=== PATIENT | male | born 1940 | race Caucasian/White ===

== ENCOUNTER → 2017-11-15 | Outpatient (CLI) | payer MEDICARE, OTHER ==
[~2017-11-15] MED LIST: ALLO300T PO; ASPI-515 PO; GABA300C10 PO; LISI-170 PO; MELO15TA24 PO; METO25TA35 PO; OXYC5CAP2 PO; REGADENOSON 0.4 MG/5 ML SYRINGE ONE; TAMS-11 PO; TRAM50TA2 PO
== END | disposition home or self-care (01) ==
LOC: CFH 08:13
PROVIDERS: ATTEND Internal Medicine Cardiovascular Disease
DX: R06.02 Shortness of breath (principal)
CPT/HCPCS: 78452; 93017; A9502; J2785

== ENCOUNTER → 2018-08-12 | Outpatient (CLI) | payer MEDICARE, OTHER ==
[~2018-08-12] MED LIST changes: -REGADENOSON 0.4 MG/5 ML SYRINGE ONE
[2018-08-12 14:06] LABS: BASOPHILS # (AUTO) 0.05 x10^3/uL (0-0.1); BASOPHILS % (AUTO) 1 % (0-1); EOSINOPHILS % (AUTO) 4 % (1-7); LYMPHOCYTES # (AUTO) 1.73 x10^3/uL (1-3.4); LYMPHOCYTES % (AUTO) 23 % (22-44); MD NO; MEAN CORPUSCULAR HGB CONC 35.1 g/dL (33.2-36.2); MEAN CORPUSCULAR VOLUME 99.8 fL (81-97); MEAN PLATELET VOLUME 8.1 fL (7.4-10.4); MONOCYTES # (AUTO) 0.64 x10^3/uL (0.2-0.8); MONOCYTES % (AUTO) 9 % (2-9); NEUTROPHILS % (AUTO) 63 % (42-75); PLATELET COUNT 218 x10^3/uL (130-400)
[2018-08-12 14:08] LABS: ALANINE AMINOTRANSFERASE 28 U/L (12-78); ALBUMIN 4.1 g/dL (3.4-5.0); ANION GAP 6 mmol/L (5-15); CHLORIDE 109 mmol/L (98-107); CREATININE 1.34 mg/dL (0.7-1.3)
[2018-08-12 14:11] LABS: ALKALINE PHOSPHATASE 68 U/L (45-117); BILIRUBIN,TOTAL 0.4 mg/dL (0.2-1.0); TOTAL PROTEIN 7.1 g/dL (6.4-8.2)
[2018-08-12 14:12] LABS: PROTHROMBIN TIME 10.5 Seconds (9.6-11.5)
[2018-08-12 14:31] LABS: HEMOGLOBIN A1C 5.6 % (4.2-6.3)
== END | disposition home or self-care (01) ==
LOC: STAR 12:54
PROVIDERS: ATTEND Orthopaedic Surgery
DX: Z01.818 Encounter for other preprocedural examination (principal); M17.12 Unilateral primary osteoarthritis, left knee
CPT/HCPCS: 36415; 80053; 83036; 85025; 85610; 85730; 87081; 87806; 93005; G0475

== ENCOUNTER 2018-08-26 05:23 | Observation (INO) | payer MEDICARE, OTHER ==
[2018-08-12 13:25] VITALS: BP 137/85
[~2018-08-26] VITALS: Ht 177.8 cm; Wt 115.2 kg
[2018-08-26] MEDS ORDERED: LACTATED RINGERS 1,000 ML IV SCH (05:50)
[2018-08-26] MEDS ORDERED: ACETAMINOPHEN 500 MG TABLET PO ONE (06:00)
[2018-08-26] MEDS ORDERED: GABAPENTIN 300 MG CAPSULE PO ONE (06:00)
[2018-08-26] MEDS ORDERED: ACET-1600 PO (06:08)
[2018-08-26] MEDS ORDERED: TRANEXAMIC ACID 100 MG/ML, 10ML ONE ×4 (06:16→06:17)
[2018-08-26] MEDS ORDERED: KETOROLAC 60 MG/2 ML ONE (06:16)
[2018-08-26] MEDS ORDERED: ROPIvacaine/PF 0.2%, 20 ML ONE (06:17)
[2018-08-26] MEDS ORDERED: VANCOMYCIN 1,000 MG ONE (06:17)
[2018-08-26] MEDS ORDERED: SODIUM CHLORIDE 0.9% 50 ML ONE (06:17)
[2018-08-26] MEDS ORDERED: EPINEPHRINE 1 MG/ML, 1ML ONE (06:18)
[2018-08-26] MEDS ORDERED: FENTANYL PF 250 MCG/5ML ONE (06:47)
[2018-08-26] MEDS ORDERED: MIDAZOLAM 1 MG/ML, 2ML ONE (06:47)
[2018-08-26] MEDS ORDERED: ACETAMINOPHEN 650 MG/20.3 ML UDC PO PRN (07:00)
[2018-08-26] MEDS ORDERED: DIPHENHYDRAMINE 25 MG CAPSULE PO PRN (07:00)
[2018-08-26] MEDS ORDERED: MAGNESIUM HYDROXIDE 8%, 30ML UDC PO PRN (07:00)
[2018-08-26] MEDS ORDERED: OXYcodone IR 5MG TABLET PO PRN (07:00)
[2018-08-26] MEDS ORDERED: ONDANSETRON 2MG/ML, 2ML IV PRN (07:00)
[2018-08-26] MEDS ORDERED: SENNA/DOCUSATE TABLET PO PRN (07:00)
[2018-08-26] MEDS ORDERED: ALUMINUM/MAG/SIMETHICONE 30 ML UDC PO PRN (07:00)
[2018-08-26] MEDS ORDERED: ONDANSETRON 4 MG TABLET PO PRN (07:00)
[2018-08-26] MEDS ORDERED: HYDROmorphone 1 MG/ML, 1ML INJ IV PRN (07:00)
[2018-08-26] MEDS ORDERED: MEPERIDINE/PF 50 MG/ML ONE (07:49)
[2018-08-26] MEDS ORDERED: HALOPERIDOL 5 MG/ML IV PRN (08:00)
[2018-08-26] MEDS ORDERED: hydrALAzine 20 MG/ML, 1ML IV PRN (08:00)
[2018-08-26] MEDS ORDERED: HYDROmorphone 2 MG/ML, 1ML IVPush PRN (08:00)
[2018-08-26] MEDS ORDERED: MEPERIDINE/PF 25MG/0.5ML IVPush PRN (08:00)
[2018-08-26] MEDS ORDERED: OXYcodone 5 MG/5 ML ORAL.SOL UDC PO PRN (08:00)
[2018-08-26] MEDS ORDERED: FENTANYL PF 100 MCG/2ML IV PRN (08:00)
[2018-08-26] MEDS ORDERED: PROMETHAZINE 25 MG/ML, 1ML IV PRN (08:00)
[2018-08-26] MEDS ORDERED: ACETAMINOPHEN 325 MG TABLET PO PRN (08:00)
[2018-08-26] MEDS ORDERED: ONDANSETRON 2MG/ML, 2ML ONE (08:08)
[2018-08-26] MEDS ORDERED: LIDOCAINE-MPF 2% ,5ML ONE (08:08)
[2018-08-26] MEDS ORDERED: ROCURONIUM 10MG/ML,5ML ONE (08:08)
[2018-08-26] MEDS ORDERED: PROPOFOL 10 MG/ML, 20ML ONE (08:08)
[2018-08-26] MEDS ORDERED: WATER-INJECTION,STERILE 10 ML IV ONE (08:08)
[2018-08-26] MEDS ORDERED: DEXAMETHASONE 4 MG/ML, 5ML ONE (08:08)
[2018-08-26] MEDS ORDERED: CEFAZOLIN 1,000 MG ONE (08:08)
[2018-08-26] MEDS: DOCUSATE 100 MG CAPSULE PO SCH ×2 (09:00→20:57)
[2018-08-26] MEDS ORDERED: TRANEXAMIC ACID 1,000 MG in SODIUM CHLORIDE 0.9% 100 ML IVPB ONE (09:30)
[2018-08-26] MEDS ORDERED: PHENYLEPHRINE 10 MG/ML ONE (10:40)
[2018-08-26] MEDS ORDERED: KETAMINE 10 MG/ML, 20ML ONE (10:40)
[2018-08-26] MEDS: D5%-0.45NACL+KCL 20MEQ 1,000 ML IV SCH ×2 (11:43→19:06)
[2018-08-26 12:25] VITALS: BP 115/78
[2018-08-26] MEDS: CEFAZOLIN PMX 1GM/50ML 50 ML IVPB SCH ×2 (15:14→22:24)
[2018-08-26] MEDS ORDERED: SODIUM CHLORIDE 0.9% 500 ML IV ONE (17:30)
[2018-08-26] MEDS: ASPIRIN 81 MG TABLET EC PO SCH (17:39)
[2018-08-26] MEDS: TAMSULOSIN 0.4 MG CAP.ER.24H PO SCH (17:39)
[2018-08-26 20:21] VITALS: BP 108/66
[2018-08-26] MEDS ORDERED: LISINOPRIL 20 MG TABLET PO SCH (21:00)
[2018-08-26 23:50] VITALS: BP 101/64
[2018-08-27] MEDS: D5%-0.45NACL+KCL 20MEQ 1,000 ML IV SCH ×2 (03:06→11:06)
[2018-08-27 04:20] VITALS: BP 95/59
[2018-08-27] MEDS ORDERED: DEXAMETHASONE 4 MG/ML, 1ML IVPush SCH (06:00)
[2018-08-27] MEDS: ASPIRIN 81 MG TABLET EC PO SCH (06:02)
[2018-08-27] MEDS ORDERED: KETOROLAC 30 MG/1 ML IV SCH (07:00)
[2018-08-27 07:12] VITALS: BP 102/59
[2018-08-27] MEDS: DOCUSATE 100 MG CAPSULE PO SCH (08:05)
[2018-08-27] MEDS: TAMSULOSIN 0.4 MG CAP.ER.24H PO SCH (08:06)
[2018-08-27] MEDS ORDERED: ALLOPURINOL 300 MG TABLET PO SCH (09:00)
== END 2018-08-27 14:05 | disposition home or self-care (01) ==
LOC: OUT 05:23 → ORIP 06:39 → INTOOBSV 06:39 → OBSVTOIN 06:39 → 4NOR 09:58 → DCLOUNGE 08-27 13:48
PROVIDERS: ADMIT Orthopaedic Surgery; ATTEND Orthopaedic Surgery
DX: M17.12 Unilateral primary osteoarthritis, left knee (principal)
CPT/HCPCS: 27447; 36415; 73560; 85014; 85018; 87070; 87075; 87176; 87205; 96365; 96366; 96375; 97116; 97150; 97161; 97166; 97535; C1713; C1776; G0378; J0171; J0690; J1100; J1885; J2175; J2250; J2370; J2405; J2704; J2795; J3010; J3480; J3490; J7040; J7120; J3370

== ENCOUNTER 2019-01-13 09:36 | Outpatient (CLI) | payer MEDICARE, OTHER | END 2019-01-13 23:59 | disposition home or self-care (01) | LOC: STAR 09:36 | PROVIDERS: ATTEND Urology | DX: Z01.818 Encounter for other preprocedural examination (principal); N28.89 Other specified disorders of kidney and ureter | CPT/HCPCS: 36415; 80053; 85025; 93005 ==